=== PATIENT | male | born 1975 | race American Indian/Alaskan Native ===

== ENCOUNTER 2021-09-13 22:14 | Emergency (ER) | payer SELFPAY ==
[2021-09-14] MEDS ORDERED: cloNIDine 0.2 MG TAB PO ONE (09:23)
--- NOTE | 2021-09-14 09:24 | Emergency Department Report ---
ED General Adult HPI - General Chief complaint: High BP Stated complaint: BLOOD PRESSURE PUI?: No Time Seen by Provider: 09/14/21 08:49 Source: patient Mode of arrival: Ambulatory Limitations: No Limitations - History of Present Illness Initial comments: This is a 45-year-old male with no past medical history who presents to the ED today for elevated blood pressure. Patient states that he was getting preemployment physical done at the clinic when he was told that his blood pressure is elevated. Patient states that prior to this visit he had been unaware of his blood pressure being high. Patient denies any symptoms such as headache, blurry vision, chest pain or any other symptoms. Patient states he was told everything with his physical was normal and the only thing was his elevated blood pressure and he was sent to the ED for evaluation of his blood pressure. Severity scale (0 -10): 0 - Related Data Previous Rx's Medication Instructions Recorded Last Taken Type amLODIPine 10 mg PO DAILY #60 tab 09/14/21 Unknown Rx Allergies Allergy/AdvReac Type Severity Reaction Status Date / Time No Known Allergies Allergy Unverified 09/13/21 23:05 ED Review of Systems ROS: Stated complaint: BLOOD PRESSURE Other details as noted in HPI Comment: All other systems reviewed and negative ED Past Medical Hx - Medications Home Medications: Home Medications Medication Instructions Recorded Confirmed Last Taken Type amLODIPine 10 mg PO DAILY #60 tab 09/14/21 Unknown Rx ED Physical Exam - General Limitations: No Limitations General appearance: alert, in no apparent distress - Head Head exam: Present: atraumatic, normocephalic - Eye Eye exam: Present: normal appearance, PERRL - ENT ENT exam: Present: mucous membranes moist - Neck Neck exam: Present: normal inspection - Respiratory Respiratory exam: Present: normal lung sounds bilaterally. Absent: respiratory distress, wheezes - Cardiovascular Cardiovascular Exam: Present: regular rate, normal rhythm. Absent: systolic murmur, diastolic murmur, rubs, gallop - GI/Abdominal GI/Abdominal exam: Present: soft, normal bowel sounds. Absent: distended, tenderness - Rectal Rectal exam: Present: deferred - Extremities Exam Extremities exam: Present: normal inspection - Back Exam Back exam: Present: normal inspection - Neurological Exam Neurological exam: Present: alert, oriented X3 - Psychiatric Psychiatric exam: Present: normal affect, normal mood - Skin Skin exam: Present: warm, dry, intact, normal color. Absent: rash ED Course Vital Signs 09/13/21 09/14/21 09/14/21 23:04 08:27 09:31 Temperature 98.6 F Pulse Rate 89 74 74 Respiratory 16 16 Rate Blood Pressure 170/109 168/96 Blood Pressure 182/116 [Right] O2 Sat by Pulse 100 Oximetry 09/14/21 12:00 Temperature Pulse Rate 73 Respiratory 16 Rate Blood Pressure Blood Pressure 125/82 [Right] O2 Sat by Pulse 100 Oximetry ED Medical Decision Making - Lab Data Result diagrams: 09/14/21 10:09 09/14/21 10:09 Vital Signs 09/13/21 09/14/21 09/14/21 23:04 08:27 09:31 Temperature 98.6 F Pulse Rate 89 74 74 Respiratory 16 16 Rate Blood Pressure 170/109 168/96 Blood Pressure 182/116 [Right] O2 Sat by Pulse 100 Oximetry 09/14/21 12:00 Temperature Pulse Rate 73 Respiratory 16 Rate Blood Pressure Blood Pressure 125/82 [Right] O2 Sat by Pulse 100 Oximetry - Medical Decision Making 45-year-old male presents for asymptomatic high blood pressure without diagnosis of hypertension. Labs were normal, patient given clonidine in the ED for blood pressure management. Blood pressure reduced. Discussed with patient will give prescription for amlodipine for blood pressure management. I did discuss with patient follow-up with primary care physician for blood pressure management. Patient understands instructions and states he will follow-up. Patient had no neurodeficit throughout ED stay and at this time blood pressure stabilized patient is safe for discharge. Blood pressure reduced prior to discharge. Critical care attestation.: If time is entered above; I have spent that time in minutes in the direct care of this critically ill patient, excluding procedure time. ED Disposition Clinical Impression: Uncontrolled hypertension Disposition: HOME / SELF CARE / HOMELESS Is pt being admited?: No Does the pt Need Aspirin: No Condition: Stable Instructions: Hypertension, Adult, [id number], Managing Your Hypertension, Hypertension (ED) Additional Instructions: Make sure to follow up with the primary care physician as discussed. Take all your medications as you've been prescribed. If you have any worsening symptoms or develop new symptoms please return to ED immediately. Prescriptions: amLODIPine 10 mg PO DAILY #60 tab Referrals: DIEGO CASSIDY MD [Primary Care Provider] - 3-5 Days Forms: Work/School Release Form(ED) Time of Disposition: 11:47
[2021-09-14 11:17] LABS: Basophils % (Auto) 0.6 % (0.0-1.8); Eosinophils % (Auto) 0.5 % (0.0-4.3); Hematocrit 42.2 % (35.5-45.6); Hemoglobin 14.2 gm/dl (11.8-15.2); Lymphocytes # (Auto) 1.7 K/mm3 (1.2-5.4); Lymphocytes % (Auto) 28.7 % (13.4-35.0); Mean Corpuscular HGB Conc 34 % (32-34); Mean Corpuscular Volume 90 fl (84-94); Monocytes # (Auto) 0.5 K/mm3 (0.0-0.8); Monocytes % (Auto) 8.4 % (0.0-7.3); Platelet Count 219 K/mm3 (140-440); Red Blood Count 4.68 M/mm3 (3.65-5.03); Red Cell Distribution Width 13.2 % (13.2-15.2)
[2021-09-14 11:43] LABS: Alanine Aminotransferase 16 units/L (7-56); Albumin 4.8 g/dL (3.9-5); BUN/Creatinine Ratio 10; Blood Urea Nitrogen 8 mg/dL (9-20); Calcium 9.4 mg/dL (8.4-10.2); Hemolysis Index 3
[2021-09-14 12:01] VITALS: BP 125/82
--- NOTE | 2021-09-15 09:55 | Electrocardiograph Report ---
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
--- NOTE | 2021-09-15 09:55 | Electrocardiograph Report ---
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
== END 2021-09-14 12:39 | disposition home or self-care (01) ==
LOC: ED 22:14
DX: I10 Essential (primary) hypertension (principal)
CPT/HCPCS: 36415; 80053; 84484; 85025; 93005; 99283